=== PATIENT | male | born 1975 | race Caucasian/White ===

== ENCOUNTER 2024-01-29 15:38 | Outpatient (CLI) | payer OTHER, SELFPAY | END 2024-01-29 15:39 | disposition home or self-care (01) | PROVIDERS: Visit Provider Family Medicine | DX: Z00.00 Encounter for general adult medical examination without abnormal findings (principal); Z11.59 Encounter for screening for other viral diseases; F17.220 Nicotine dependence, chewing tobacco, uncomplicated; I73.00 Raynaud's syndrome without gangrene; R13.10 Dysphagia, unspecified; Z82.69 Family history of other diseases of the musculoskeletal system and connective tissue | CPT/HCPCS: 80053; 80061; 83516; 86039; 86235; 86803 ==

== ENCOUNTER 2024-08-10 21:02 | Emergency (ER) | payer OTHER, SELFPAY ==
[2024-08-10 21:10] VITALS: BP 126/85; PULSE 87; RESP 16; TEMP 37; O2SAT 97; BMI 26.8
--- NOTE | 2024-08-10 21:27 | CRLHL7_ITS ---
For Patients: As a result of the Century Cures Act, medical imaging exams and procedure reports are released immediately into your electronic medical record. You may view this report before your referring provider. If you have questions, please contact your health care provider. Indication: Pain superolateral aspect of patella. Technique: Left knee 3 views. Comparison: None. Findings: Bones: Alignment is normal. No fractures or bone lesions. Joint spaces: Unremarkable. Soft tissues: Unremarkable. Impression: No evidence of an acute bony abnormality. The patella is unremarkable. Dictated by Librado Waters MD @ 08/10/2024 9:50:30 PM (Electronically Signed)
--- NOTE | 2024-08-10 21:28 | ED_ITS ---
HPI - General Adult General Chief complaint: Extremity Pain/Injury, Lower Stated complaint: swollen left knee Time Seen by Provider: 08/10/24 21:07 History of Present Illness HPI narrative: This 49-year-old male comes in with pain in his left knee with some mild swelling. He does not report any injury event but states that he is using his knees and legs often at his work. 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 He does not report any instability. He has normal range of motion. His pain seems to be more localized in the superior lateral aspect of the patella. Related Data Previous Rx's ?Medication ?Instructions ?Recorded epinephrine 0.3 mg/0.3 mL 0.3 mg (0.3 mL) IM ONCE #2 ea 01/29/24 injection, auto-injector (EpiPen 2-Tello) nicotine 21 mg/24 hr daily 1 patch transdermal Q24H #28 ea 01/29/24 transdermal patch omeprazole magnesium 10 mg oral 20 mg PO QDAY #30 ea 01/29/24 suspension,delayed release sumatriptan 5 mg/actuation nasal 5 mg intranasal Q2-4H PRN migraine 01/29/24 spray headache #6 ea Allergies Allergy/AdvReac Type Severity Reaction Status Date / Time Fish Containing Products Allergy Severe throat Verified 01/29/24 15:05 swelling Review of Systems Status of ROS: Reports: 10 or more systems reviewed and unremarkable except as noted in History and below Narrative: Constitutional: No fevers, no weight gain or loss. Eyes: No discharge. No vision changes. HENT: No congestion, no sore throat, no ear pain. Cardiovascular: No chest pain, no palpitations. Respiratory: No shortness of breath, no wheezes, no cough. Gastrointestinal: No abdominal pain, no vomiting, no diarrhea. Genitourinary: No dysuria, no hematuria. Musculoskeletal: Normal range of motion. Left knee pain as described above. Skin: No rashes, no pruritis. Neurological: No dizziness, weakness, sensory change, speech change. Endo/Heme/Allergies: No bruising or bleeding. No polydipsia. Pysch: no suicidality, no anxiety, no insomnia. All other systems reviewed and are negative. [facility] Surgical History (Updated 01/29/24 @ 15:19 by Gladys Cali MD) S/P tonsillectomy ?Z90.89 - Acquired absence of other organs (ICD-10) Family History (Updated 01/29/24 @ 15:18 by Gladys Cali MD) Mother Scleroderma Raynaud disease Cardiovascular disease Brother Raynaud disease Diabetes Valvular heart disease Social History (Updated 02/03/24 @ 08:09 by Lisa Larry ~ [facility]) What is your current living situation?: I presently have a place to live Problems where you live: no known problems In the past 12 months, utilities in danger of being shut off: no In the past 12 mos, have been you worried that your food would run out before you had money to buy more?: never true In the past 12 mos, the food you bought just didn't last and you didn't have money to buy more?: never true Smoking Status: Never smoker How often do you have a drink containing alcohol: 2-3 times a week How many standard drinks containing alcohol do you have on a typical day: 1 or 2 AUDIT-C Alcohol total score: 3 Non-prescribed substance use: denies use How often does anyone, including family, friends and others, physically hurt you : never How often does anyone, including family, friends and others, insult or talk down to you: never How often does anyone, including family, friends and others, threaten you with harm: never How often does anyone, including family, friends and others, scream or curse at you: never Exam Narrative: Exam Narrative: Constitutional: Well-developed, well-nourished, no acute distress. HEENT: Normocephalic, atraumatic. Neck: Normal range of motion. Nontender. Supple. Heart: Regular. No murmurs. Normal rate. Intact distal pulses. Lungs: Clear to auscultation. No chest discomfort. No wheezes, rhonchi, or rales. Abdomen: Normal bowel sounds. Nontender. No rebound tenderness. Genitalia: Deferred. Back: No midline tenderness. Normal range of motion. Extremities: Normal range of motion. Mild swelling. Tenderness is located along the lateral aspect of the patella superiorly where the quadricep tendon attaches. Skin: Intact. No rash. Warm. No erythema or pallor. Neurologic: No altered sensation. No weakness. Alert and oriented. Psychiatric: No suicidality. No anxiety or depression. No insomnia. Nursing notes and vitals signs are reviewed. Const: Vital Signs, click to edit/add: Vital Signs - 24 hr 08/10/24 21:10 Temperature 98.6 F Pulse Rate [Pulse Oximeter] 87 Respiratory Rate 16 Blood Pressure [Ri ght Upper Arm] 126/85 Pulse Oximetry 97 Oxygen Delivery Me thod Room Air Course Vital Signs Vital signs: Initial Vital Signs Temperature 98.6 F 08/10/24 21:10 Temperature Source Temporal Artery Scan 08/10/24 21:10 Pulse Rate 87 08/10/24 21:10 Respiratory Rate 16 08/10/24 21:10 Blood Pressure 126/85 08/10/24 21:10 Blood Pressure Mean 98 08/10/24 21:10 Blood Pressure Position Sitting 08/10/24 21:10 Pulse Oximetry 97 08/10/24 21:10 Oxygen Delivery Method Room Air 08/10/24 21:10 Vital Signs Temperature 98.6 F 08/10/24 21:10 Pulse Rate 87 08/10/24 21:10 Respiratory Rate 16 08/10/24 21:10 Blood Pressure 126/85 08/10/24 21:10 Pulse Oximetry 97 08/10/24 21:10 Oxygen Delivery Method Room Air 08/10/24 21:10 Temperature 98.6 F 08/10/24 21:10 Pulse Rate 87 08/10/24 21:10 Respiratory Rate 16 08/10/24 21:10 Blood Pressure 126/85 08/10/24 21:10 Pulse Oximetry 97 08/10/24 21:10 Oxygen Delivery Method Room Air 08/10/24 21:10 Medical Decision Making MDM Narrative Medical decision making narrative: This patient comes in with left knee pain as described above. X-ray images are obtained of the left knee and by my report along with Radiology assessment there are no acute findings. In particular the patella looks normal there is no calcifications suggesting more chronic tendinitis. His symptoms are nevertheless suspicious for a quadriceps tendinitis as he has pain localized where the quadriceps tendon attaches to the patella on the lateral superior aspect of his left knee. This appears to be an overuse injury. The patient does frequently climb ladders and also spends a fair amount of time on his knees related to his work. I advised him to adjust his activities in this way to allow for rest and recovery. The patient is okay to be discharged home and encouraged to follow-up with orthopedic clinic if not improving or worsening. He did receive a prescription for Toradol from the [facility]. Imaging Data XR L Knee: Radiologist's impression: No evidence of an acute bony abnormality. The patella is unremarkable. Discharge Plan Discharge Prescriptions: No Action sumatriptan 5 mg/actuation spray,non-aerosol 5 mg intranasal Q2-4H PRN (Reason: migraine headache) Qty: 6 0RF Rx Instructions: into each nostril once; if headache remains, may repeat total dose once after at least 2 hours epinephrine [EpiPen 2-Tello] 0.3 mg/0.3 mL auto-injector 0.3 mg IM ONCE Qty: 2 1RF Rx Instructions: as a single dose; may repeat once nicotine 21 mg/24 hr patch 24 hour 1 patch transdermal Q24H Qty: 28 12RF omeprazole magnesium 10 mg susp,delayed release for recon 20 mg PO QDAY Qty: 30 12RF Follow Up/Referrals: Provider,Not a Local [Primary Care Provider] -
== END 2024-08-10 22:27 | disposition home or self-care (01) ==
PROVIDERS: Emergency Provider Emergency Medicine Emergency Medical Services
DX: M25.562 Pain in left knee (principal)
CPT/HCPCS: 73562; 99283; 99284

== ENCOUNTER 2024-09-07 02:03 | Emergency (ER) | payer OTHER, SELFPAY ==
[2024-09-07 02:03] VITALS: PULSE 73
[2024-09-07 02:25] VITALS: BP 111/86; PULSE 73; RESP 16; TEMP 36.8; O2SAT 96; BMI 26.8
--- NOTE | 2024-09-07 03:25 | ED_ITS ---
HPI - General Adult General Chief complaint: Extremity Pain/Injury, Upper Stated complaint: Pain left arm Time Seen by Provider: 09/07/24 02:58 Source: patient Mode of arrival: ambulatory Limitations: no limitations History of Present Illness HPI narrative: 49-year-old male presents the emergency department with 10 hours of pain in the left shoulder, focal and with movement. No chest pain, no shortness of breath, no exertional symptoms or dizziness. Has not tried taking any medication to help with his symptoms. He had a hard time falling asleep, therefore decided to come to the emergency department. Has not been evaluated by a medical provider for this condition previously. Works in refrigeration, loss of ladders and overhead work. No specific new trauma or injury. No numbness or tingling, no radiculopathy. No fever. No history of cardiac symptoms. No difficulty breathing. Pain does not radiate. No weakness in the hand. Past medical history benign per his report. No major long-term health problems. Is a smoker. Does have what sounds like an esophageal stricture that he has avoided getting treated. He says that it is difficult to swallow pills because of this. He will sometimes use to medications but admits that he does not know a proper dose of a children's chewable Tylenol and tends to take about 3 tablets. I let him know that this would be a comparable dose for a preschooler. Allergy to fish but not show fish. ROS is notable for the musculoskeletal symptoms in the left shoulder only, otherwise denies times 12 systems. Related Data Previous Rx's ?Medication ?Instructions ?Recorded epinephrine 0.3 mg/0.3 mL 0.3 mg (0.3 mL) IM ONCE #2 ea 01/29/24 injection, auto-injector (EpiPen 2-Tello) nicotine 21 mg/24 hr daily 1 patch transdermal Q24H #28 ea 01/29/24 transdermal patch omeprazole magnesium 10 mg oral 20 mg PO QDAY #30 ea 01/29/24 suspension,delayed release sumatriptan 5 mg/actuation nasal 5 mg intranasal Q2-4H PRN migraine 01/29/24 spray headache #6 ea Allergies Allergy/AdvReac Type Severity Reaction Status Date / Time Fish Containing Products Allergy Severe throat Verified 08/10/24 22:17 swelling PFSH PFS Surgical History S/P tonsillectomy ?Z90.89 - Acquired absence of other organs (ICD-10) Family History Mother Scleroderma Raynaud disease Cardiovascular disease Brother Raynaud disease Diabetes Valvular heart disease Social History What is your current living situation?: I presently have a place to live Problems where you live: no known problems In the past 12 months, utilities in danger of being shut off: no In the past 12 mos, have been you worried that your food would run out before you had money to buy more?: never true In the past 12 mos, the food you bought just didn't last and you didn't have money to buy more?: never true Smoking Status: Never smoker Do you use any of these nicotine containing products: None Second hand tobacco smoke exposure: No How often do you have a drink containing alcohol: 2-3 times a week How many standard drinks containing alcohol do you have on a typical day: 1 or 2 AUDIT-C Alcohol total score: 3 Non-prescribed substance use: denies use How often does anyone, including family, friends and others, physically hurt you : never How often does anyone, including family, friends and others, insult or talk down to you: never How often does anyone, including family, friends and others, threaten you with harm: never How often does anyone, including family, friends and others, scream or curse at you: never service: No Exam Const: Vital Signs, click to edit/add: Vital Signs - 24 hr 09/07/24 02:03 09/07/24 02:25 Temperature 98.2 F Pulse Rate [Left P ulse Oximeter] 73 Pulse Rate [Left R adial] 73 Respiratory Rate 16 Blood Pressure [Ri ght Upper Arm] 111/86 Pulse Oximetry 96 Oxygen Delivery Me thod Room Air Documenting provider has reviewed patient's vital signs: yes Common normals: no apparent distress and alert General appearance: cooperative, comfortable and well kempt HENMT: Common normals: normocephalic Head and scalp: normocephalic Face and sinus: normal facial exam Eye: Common normals: conjunctivae normal General eye: normal appearance of both eyes Conjunctiva: conjunctiva(e) normal Neck & C-Spine: Common normals: full ROM and no lymphadenopathy Resp: Common normals: normal respiratory effort, no use of accessory muscles and clear to auscultation bilaterally Effort & inspection: able to speak in complete sentences Auscultation: clear to auscultation bilaterally Cardio: Common normals: regular rate, regular rhythm, S1 normal heart sound, S2 normal heart sound and no murmurs Rate: regular rate Rhythm: regular rhythm Heart sounds: S1 normal and S2 normal Extremity: Other: Normal range of motion in both shoulders, no point bony tenderness. Positive impingement signs in left rotator cuff, supraspinatus area which does reproduce the pain that he is describing. No weakness in the biceps. Normal strength in the hands. Normal range of motion in the neck. Neuro: Sensorium/orientation: alert Gait (neuro): normal gait Motor exam: strength 5/5 throughout Psych: Appearance: well kempt Activity/motor behavior: appropriate eye contact Insight: fair Judgement: fair Skin: Common normals: no rashes or lesions noted General skin exam: no rashes or lesions noted Course Course ED Course: 49-year-old male with focal pain in the left upper arm/biceps shoulder area. No symptoms to suggest cardiopulmonary disease. Exam very suspicious for chronic rotator cuff strain. Counseled patient on findings. He is in agreement that this is likely the source of his symptoms as well. I offered a cardiac workup including EKG, blood work etc.. I think this would be very low yield for him and he is in agreement. He would also like to decline this today which I think is medically appropriate. Counseled that he is going to have to take medication for this as it is going to flare up on him again. Counseled on his type of work and modifications he may be able to do to reduce his symptoms. Admittedly, it sounds as though this would be difficult for him. I recommend Tylenol 1000 mg every 6 hours and or ibuprofen 600 mg every 6 hours for the pain. Proper dosing discussed. Okay to use gentle sleep aids like melatonin or Benadryl as well. Recommended physical therapy, primary care follow-up if not improving in 8 weeks. Stepwise interventions after that if needed. Alarm symptoms that would warrant ED presentation reviewed. Patient verbalizes understanding and agreement Vital Signs Vital signs: Initial Vital Signs Pulse Rate 73 09/07/24 02:03 Pulse Rhythm Regular 09/07/24 02:03 Vital Signs Pulse Rate 73 09/07/24 02:03 Temperature 98.2 F 09/07/24 02:25 Pulse Rate 73 09/07/24 02:25 Respiratory Rate 16 09/07/24 02:25 Blood Pressure 111/86 09/07/24 02:25 Pulse Oximetry 96 09/07/24 02:25 Oxygen Delivery Method Room Air 09/07/24 02:25 Discharge Plan Discharge Clinical Impression: Dysfunction of left rotator cuff Patient Disposition: Home, Self-Care Condition: Stable Instructions: Rotator Cuff Tendinitis (ED) Additional Instructions: As we discussed, your pain is clearly caused by chronic dysfunction in the left rotator cuff area. There are no signs of heart disease. I do not recommend that we run you up a high bill with an extensive heart workup since your exam is so clearly pointing towards a rotator cuff strain. For most people, this is a chronic rather than an acute type of condition. Meaning your likely to have more flare ups similar to this. Please remember that if the pain is keeping you awake, please max out a proper adult dose of Tylenol and ibuprofen prior to use of an emergency room for this sort of thing. Proper adult dose of Tylenol as a 1000 mg every 6 hours. Proper adult dose of ibuprofen is 600 mg every 6 hours. If you are choosing to use the children's chewable Tylenol, remember that that is a lot of tablets. If the tablets are 100 mg, proper adult dose is at least 7 of them, preferably 10 every 6 hours. This can get expensive. There are smaller tablets available, ibuprofen tends to come in small tablet form that may be easier for you to get down. Taking them with pudding or applesauce may be helpful as well. I recommend that you schedule with a physical therapist. I have given you a handout of information on the condition. Your unlikely to need a referral for a physical therapist. If things are not improving after 8 weeks of physical therapy, I would recommend a follow-up with your primary care provider. Injections and or eventually surgery may be necessary, but often is best to be avoided until things are more problematic. It is okay to use [id number] sleep aids like melatonin 10 mg at bedtime and or Tylenol p.m. which is just Tylenol plus 25-50 mg of Benadryl as needed to help you sleep as well. Prescriptions: No Action sumatriptan 5 mg/actuation spray,non-aerosol 5 mg intranasal Q2-4H PRN (Reason: migraine headache) Qty: 6 0RF Rx Instructions: into each nostril once; if headache remains, may repeat total dose once after at least 2 hours epinephrine [EpiPen 2-Tello] 0.3 mg/0.3 mL auto-injector 0.3 mg IM ONCE Qty: 2 1RF Rx Instructions: as a single dose; may repeat once nicotine 21 mg/24 hr patch 24 hour 1 patch transdermal Q24H Qty: 28 12RF omeprazole magnesium 10 mg susp,delayed release for recon 20 mg PO QDAY Qty: 30 12RF Follow Up/Referrals: Provider,Not a Local [Primary Care Provider] - Stand Alone Forms: MyHealth Info Instructions
== END 2024-09-07 04:08 | disposition home or self-care (01) ==
LOC: ED 03:26
PROVIDERS: Emergency Provider Family Medicine
DX: M75.102 Unspecified rotator cuff tear or rupture of left shoulder, not specified as traumatic (principal)
CPT/HCPCS: 99283

== ENCOUNTER 2024-09-08 13:18 | Outpatient (RCR) | payer OTHER, SELFPAY | END 2025-01-06 23:59 | disposition home or self-care (01) | PROVIDERS: PCP Family Medicine; Visit Provider Family Medicine | DX: M67.912 Unspecified disorder of synovium and tendon, left shoulder (principal); M25.512 Pain in left shoulder; Z51.89 Encounter for other specified aftercare | CPT/HCPCS: 97110; 97161 ==

== ENCOUNTER 2024-09-11 16:36 | Emergency (ER) | payer OTHER, SELFPAY ==
[2024-09-11 16:42] VITALS: BP 120/91; PULSE 75; RESP 22; TEMP 36.5; O2SAT 97; BMI 26.8
[2024-09-11 16:46] VITALS: O2SAT 98
--- NOTE | 2024-09-11 16:46 | ED_ITS ---
HPI - Allergic Reaction General Time Seen by Provider: 16:38 Date Seen: 09/11/24 Chief complaint: Allergic Reaction Stated complaint: Potential allergic reaction Time Seen by Provider: 09/11/24 16:38 Source: patient and family Mode of arrival: ambulatory Limitations: no limitations History of Present Illness HPI narrative: This 49-year-old male is coming in to the ER with concern of having an allergic reaction. 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 He had a protein drink about 130 today, is currently about 5:00 p.m.. At about 445 he developed hives and itching. He felt of slight tickle in his throat, maybe some difficulty swallowing. He baseline reportedly has issues swallowing with pills and cannot swallow pills due to some narrowing in his throat. He is not having any difficulty breathing, his did drive with him here to the ER as the urgent care was closed. He did not take his EpiPen, did not take any Benadryl. He was at a restaurant awhile back and had cross contamination of his meal with fish and had a reaction, his ran across the road to Pharmacy and just got liquid Benadryl. He responded to that without requiring EpiPen. He notes no oral pharyngeal lower lip swelling. His feels like his speech is normal. No GI symptoms, no abdominal pain. MD complaint: allergic reaction and hives Related Data Previous Rx's ?Medication ?Instructions ?Recorded epinephrine 0.3 mg/0.3 mL 0.3 mg (0.3 mL) IM ONCE #2 ea 01/29/24 injection, auto-injector (EpiPen 2-Tello) nicotine 21 mg/24 hr daily 1 patch transdermal Q24H #28 ea 01/29/24 transdermal patch omeprazole magnesium 10 mg oral 20 mg PO QDAY #30 ea 01/29/24 suspension,delayed release sumatriptan 5 mg/actuation nasal 5 mg intranasal Q2-4H PRN migraine 01/29/24 spray headache #6 ea Allergies Allergy/AdvReac Type Severity Reaction Status Date / Time Fish Containing Products Allergy Severe throat Verified 09/11/24 16:50 swelling Review of Systems Status of ROS Reports: 6 or more systems reviewed and unremarkable except as noted in History and below PFSH PFS Surgical History S/P tonsillectomy ?Z90.89 - Acquired absence of other organs (ICD-10) Family History Mother Scleroderma Raynaud disease Cardiovascular disease Brother Raynaud disease Diabetes Valvular heart disease Social History What is your current living situation?: I presently have a place to live Problems where you live: no known problems In the past 12 months, utilities in danger of being shut off: no In past 12 months, lack of transportation kept you from medical appts, meetings, work, or getting things needed for daily living: no In the past 12 mos, have been you worried that your food would run out before you had money to buy more?: never true In the past 12 mos, the food you bought just didn't last and you didn't have money to buy more?: never true Smoking Status: Never smoker Do you use any of these nicotine containing products: None Second hand tobacco smoke exposure: No How often do you have a drink containing alcohol: 2-3 times a week How many standard drinks containing alcohol do you have on a typical day: 1 or 2 How often do you have six or more drinks on one occasion: Never AUDIT-C Alcohol total score: 3 Non-prescribed substance use: denies use How often does anyone, including family, friends and others, physically hurt you : never How often does anyone, including family, friends and others, insult or talk down to you: never How often does anyone, including family, friends and others, threaten you with harm: never How often does anyone, including family, friends and others, scream or curse at you: never service: No Exam Const: Vital Signs, click to edit/add: Vital Signs - 24 hr 09/11/24 16:42 09/11/24 16:46 09/11/24 17:30 Temperature 97.7 F Pulse Rate [Pulse Oximeter] 75 69 Respiratory Rate 22 16 Blood Pressure [Le ft Upper Arm] 120/91 H 102/82 Pulse Oximetry 97 98 95 Oxygen Delivery Me thod Room Air Room Air 09/11/24 18:39 Temperature Pulse Rate [Pulse Oximeter] 66 Respiratory Rate 12 Blood Pressure [Le ft Upper Arm] 101/79 Pulse Oximetry 99 Oxygen Delivery Me thod Room Air With this 49-year-old male is alert, interactive, no apparent distress, ambulatory into the ED of his own accord. His speech is normal, no hoarseness. Sclera clear, conjugate gaze, symmetrical facial function, no rash noted. Lips are normal, oropharynx is normal, normal oral airway, note no swelling. Neck is supple, no adenopathy. Lungs are clear, good air entry, no wheezing or crackles. CV regular rate and rhythm, no murmur, normal S1-S2. Abdomen is soft, nontender. On inspection of the skin he seems to have some mild generalized erythema but no discrete raised your urticarial lesions, do not see any hives on his back. On his upper chest and back can see some mild erythema. Documenting provider has reviewed patient's vital signs: yes Course Course ED Course: Discussed with patient given the sense of the tickle he feels in his throat and skin redness with itching, epinephrine injection certainly could be considered. He personally would like to try to hold off in I do think it is reasonable to try other medicines 1st. He is in a controlled medical environment where we will have him on pulse oximetry and cardiac monitoring. We will place an IV, given 50 mg IV Benadryl, 40 mg IV Solu-Medrol, 20 mg IV Pepcid. Will give him 10 mg oral Zyrtec and see if we can crush this in something so that he could swallow it. He is aware that if he has any sense of worsening, we can and will proceed with epinephrine injection. He agrees if he has worsening to accept the EpiPen. Reevaluation(s) Time of Reevaluation #1: 17:36 Reevaluation #1: Patient is feeling fine. He has no itching, skin symptoms have resolved, no throat symptoms. Will continue monitor, likely discharge to home based on current improvement. Time of Reevaluation #2: 18:45 Reevaluation #2: Patient is feeling fine at this time, will discharge to home. He did not requir e any epinephrine. I think at this time would be reasonable to observe, any return of symptoms will have him take Zyrtec or Claritin and resume Benadryl. He does have an EpiPen at home. Vital Signs Vital signs: Initial Vital Signs Temperature 97.7 F 09/11/24 16:42 Temperature Source Temporal Artery Scan 09/11/24 16:42 Pulse Rate 75 09/11/24 16:42 Pulse Rhythm Regular 09/11/24 16:42 Respiratory Rate 22 09/11/24 16:42 Blood Pressure 120/91 H 09/11/24 16:42 Blood Pressure Mean 100 09/11/24 16:42 Blood Pressure Position Supine 09/11/24 16:42 Pulse Oximetry 97 09/11/24 16:42 Oxygen Delivery Method Room Air 09/11/24 16:42 Vital Signs Temperature 97.7 F 09/11/24 16:42 Pulse Rate 75 09/11/24 16:42 Respiratory Rate 22 09/11/24 16:42 Blood Pressure 120/91 H 09/11/24 16:42 Pulse Oximetry 97 09/11/24 16:42 Oxygen Delivery Method Room Air 09/11/24 16:42 Temperature 97.7 F 09/11/24 16:42 Pulse Rate 66 09/11/24 18:39 Respiratory Rate 12 09/11/24 18:39 Blood Pressure 101/79 09/11/24 18:39 Pulse Oximetry 99 09/11/24 18:39 Oxygen Delivery Method Room Air 09/11/24 18:39 Medications Administered Medications: Discontinued Medications Generic Name Dose Route Start Last Admin Trade Name Freq PRN Reason Stop Dose Admin Cetirizine HCl 10 mg 09/11/24 16:47 09/11/24 17:15 Cetirizine Hcl 10 Mg Tablet PO 09/11/24 16:48 10 mg DAILY ONE Administration Diphenhydramine HCl 50 mg 09/11/24 16:46 09/11/24 17:04 Diphenhydramine 50 Mg/Ml Inj IVP 09/11/24 16:47 50 mg ONCE ONE Administration Famotidine 20 mg 09/11/24 16:46 09/11/24 17:06 Famotidine 10 Mg/Ml Inj IVP 09/11/24 16:47 20 mg ONCE ONE Administration Methylprednisolone Sodium Succinate 40 mg 09/11/24 16:56 09/11/24 17:08 Methylprednisolone Sod Succ 40 Mg/Ml IVP 09/11/24 16:57 40 mg ONCE ONE Administration Discharge Plan Discharge Clinical Impression: Allergic reaction Patient Disposition: Home, Self-Care Condition: Stable Instructions: Food Allergy (ED) Additional Instructions: I would recommend to avoid this protein drink. If any recurrent symptoms such as itching starts up again, resume Benadryl per bottle directions and take daily Claritin or Zyrtec for the next 2-3 days. You were given Zyrtec here tonight. Your dose would be 10 mg of either medicine. If you have any concern for return of severe allergic reaction, it is always advised to use the EpiPen and seek emergent medical evaluation. Activity Level: Activity as Tolerated Prescriptions: No Action sumatriptan 5 mg/actuation spray,non-aerosol 5 mg intranasal Q2-4H PRN (Reason: migraine headache) Qty: 6 0RF Rx Instructions: into each nostril once; if headache remains, may repeat total dose once after at least 2 hours epinephrine [EpiPen 2-Tello] 0.3 mg/0.3 mL auto-injector 0.3 mg IM ONCE Qty: 2 1RF Rx Instructions: as a single dose; may repeat once nicotine 21 mg/24 hr patch 24 hour 1 patch transdermal Q24H Qty: 28 12RF omeprazole magnesium 10 mg susp,delayed release for recon 20 mg PO QDAY Qty: 30 12RF Follow Up/Referrals: Gladys Cali MD [Primary Care Provider] - Stand Alone Forms: [employer] Info Instructions
[2024-09-11] MEDS: diphenhydrAMINE 50 MG/ML inj IVP (17:04)
[2024-09-11] MEDS: FAMOTIDINE 10 MG/ML inj 20 MG IVP (17:06)
[2024-09-11] MEDS: METHYLPREDNISOLONE SOD SUCC 40 MG/ML IVP (17:08)
[2024-09-11] MEDS: CETIRIZINE HCL 10 MG TABLET PO (17:15)
[2024-09-11 17:30] VITALS: BP 102/82; PULSE 69; RESP 16; O2SAT 95
[2024-09-11 18:39] VITALS: BP 101/79; PULSE 66; RESP 12; O2SAT 99
== END 2024-09-11 18:57 | disposition home or self-care (01) ==
PROVIDERS: Emergency Provider Family Medicine; PCP Family Medicine
DX: L50.9 Urticaria, unspecified (principal); T78.49XA Other allergy, initial encounter
CPT/HCPCS: 94761; 96374; 96375; 99284; A9270; J1200; J2919; S0028

== ENCOUNTER 2024-09-14 12:40 | Emergency (ER) | payer OTHER, SELFPAY ==
[2024-09-14] VITALS (16 sets, daily range): BP systolic 113–127; BP diastolic 88–94; PULSE 72–85; RESP 16–18; TEMP 36.5; O2SAT 91–99; BMI 28.0
--- NOTE | 2024-09-14 13:21 | CRLHL7_ITS ---
For Patients: As a result of the Century Cures Act, medical imaging exams and procedure reports are released immediately into your electronic medical record. You may view this report before your referring provider. If you have questions, please contact your health care provider. Indication: Chest pain. Technique: Two view(s) of the chest. Comparison: None available. Findings: Mildly enlarged cardiomediastinal silhouette. Normal pulmonary vasculature. Lungs are well inflated. Streaky bibasilar airspace opacities. No pleural effusion. No pneumothorax. No acute osseous abnormality identified. Impression: 1. Mild cardiomegaly. 2. Streaky bibasilar airspace opacities may represent atelectasis versus pneumonia. Dictated by Keri Flaherty MD @ 09/14/2024 2:08:07 PM (Electronically Signed)
[2024-09-14] MEDS: ASPIRIN 81 MG TAB.CHEW 324 MG PO (13:34)
[2024-09-14 13:56] LABS: Basophils Absolute Auto 0.05 K/uL (0.00-0.30); Basophils Percent Auto 0.5 % (0.0-3.0); Eosinophils Absolute Auto 0.47 K/uL (0.00-0.50); Eosinophils Percent Auto 4.8 % (0.0-7.0); Hematocrit 39.9 % (37.0-53.0); Hemoglobin* 13.7 gm/dL (13.5-17.5); Immature Granulocytes Abs Auto 0.01 K/uL (0.00-0.30); Immature Granulocytes Pct Auto 0.1 %; Lymphocytes Percent Auto 17.3 % (20-44); Mean Corpuscular HGB Conc 34 gm/dL (32-36); Mean Corpuscular Hemoglobin 33 pg (26-34); Mean Corpuscular Volume 95 fL (80-100); Monocytes Percent Auto 6.7 % (0.0-11.0); Neutrophils Absolute Auto 6.85 K/uL (1.7-7.0); Neutrophils Percent Auto 70.6 % (42.0-72.0); Platelet Count* 296 K/uL (140-440); RDW Coefficient of Variation % 13.3 % (11.5-15.5); Red Blood Count 4.21 m/uL (4.30-5.90); White Blood Count* 9.71 K/uL (4.50-11.00)
[2024-09-14 14:01] LABS: Slide Review Reflex No
[2024-09-14 14:13] LABS: Albumin* 4.4 g/dL (3.3-5.0); Chloride* 105 mmol/L (96-114)
[2024-09-14 14:14] LABS: Sodium* 141 mmol/L (135-149)
[2024-09-14 14:16] LABS: Anion Gap 7 mEq/L (7-15); Aspartate Amino Transferase* 19 U/L (12-35); Bilirubin Direct* 0.2 mg/dL (0.0-0.5); Bilirubin Total* 0.5 mg/dL (0.1-1.5); Carbon Dioxide* 29 mmol/L (20-32); Creatinine* 0.9 mg/dL (0.5-1.5); Estimated Glomerular Filt Rate 105 ml/min; Total Protein* 7.9 g/dL (6.0-8.3)
[2024-09-14 14:17] LABS: Alanine Aminotransferase* 23 U/L (4-50); Alkaline Phosphatase* 60 U/L (40-150); Blood Urea Nitrogen* 18 mg/dL (5-24); Calcium* 9.6 mg/dL (8.4-10.6); Glucose* 84 mg/dL (60-115); Lipase* 48 U/L (23-300)
--- NOTE | 2024-09-14 14:18 | ED.CHESTPAIN ---
HPI - Chest Pain General Date Seen: 09/14/24 Chief Complaint: Chest Pain Stated Complaint: Sent from - irregular EKG Time Seen by Provider: 09/14/24 12:42 Source: patient and family Mode of arrival: ambulatory Limitations: no limitations History of Present Illness HPI narrative: Patient is a 49-year-old gentleman who presents here with anterior left-sided chest pain, with some radiation to his neck. This came on approximately 5:00 a.m. this morning and woke him from his sleep, it has remained about the same, since then approximately a 3/10, does not worsen when he moves around or exerts himself, and notes that there is no nausea vomiting diaphoresis associated with this. He has not previous episodes of chest pain, denies any leg swelling associated with this any back pain, and there is no previous history of coronary artery disease. He otherwise feels well, and was recently diagnosed with hives, was not given prednisone although he thinks he may have gotten something here in the emergency room and has been on Benadryl. Cardiac risk factor include male, positive family history of coronary artery disease in the family, no history of diabetes, smoking(but does chew) or hyperlipidemia MD complaint: chest pain Pain location: substernal and left chest Pain radiation: neck Severity: moderate Quality: tightness and heaviness Relieving factors: nothing Exacerbating factors: nothing Context: recent illness Treatment prior to arrival: none Risk Factors Coronary artery disease risk factors: family history of CAD before age 50 Thoracic aortic dissection risk factors: none Related Data Previous Rx's ?Medication ?Instructions ?Recorded epinephrine 0.3 mg/0.3 mL 0.3 mg (0.3 mL) IM ONCE #2 ea 01/29/24 injection, auto-injector (EpiPen 2-Tello) nicotine 21 mg/24 hr daily 1 patch transdermal Q24H #28 ea 01/29/24 transdermal patch Allergies Allergy/AdvReac Type Severity Reaction Status Date / Time Fish Containing Products Allergy Severe throat Verified 09/14/24 11:22 swelling Review of Systems Status of ROS Reports: 10 or more systems reviewed and unremarkable except as noted in History and below [facility] PFS Surgical History S/P tonsillectomy ?Z90.89 - Acquired absence of other organs (ICD-10) Family History Mother Scleroderma Raynaud disease Cardiovascular disease Brother Raynaud disease Diabetes Valvular heart disease Social History What is your current living situation?: I presently have a place to live Problems where you live: no known problems In the past 12 months, utilities in danger of being shut off: no In past 12 months, lack of transportation kept you from medical appts, meetings, work, or getting things needed for daily living: no In the past 12 mos, have been you worried that your food would run out before you had money to buy more?: never true In the past 12 mos, the food you bought just didn't last and you didn't have money to buy more?: never true Smoking Status: Never smoker Do you use any of these nicotine containing products: None Second hand tobacco smoke exposure: No How often do you have a drink containing alcohol: 2-3 times a week How many standard drinks containing alcohol do you have on a typical day: 1 or 2 How often do you have six or more drinks on one occasion: Never AUDIT-C Alcohol total score: 3 Non-prescribed substance use: denies use How often does anyone, including family, friends and others, physically hurt you: never How often does anyone, including family, friends and others, insult or talk down to you: never How often does anyone, including family, friends and others, threaten you with harm: never How often does anyone, including family, friends and others, scream or curse at you: never service: No Exam Narrative Exam Narrative: On examination in room 2 he is in no apparent distress vital signs are normal. GCS is 15/15 pupils equal round reactive to light there is no scleral icterus redness is TMs bilaterally are normal his oropharynx is normal there is no lymphadenopathy anterior posterior chains cranial nerves 3-12 are otherwise normal, chest is good air entry bilateral with no wheezing crackles noted heart sounds no clicks murmurs or gallops his abdomen is soft slightly obese there is no guarding no organomegaly noted. But bowel sounds are normal. Moves all extremities independently well no edema no swelling no pain, negative Homans sign neurologically intact moving his upper lower extremities. Const Vital Signs, click to edit/add: Vital Signs - 24 hr 09/14/24 13:06 09/14/24 13:15 09/14/24 13:21 Temperature 97.7 F Pulse Rate Pulse Rate [Pulse Oximeter] 85 Respiratory Rate 18 Blood Pressure Blood Pressure [Right Upper Arm] 127/93 H Pulse Oximetry 97 95 91 Oxygen Delivery Method Room Air 09/14/24 13:58 09/14/24 14:00 09/14/24 14:01 Temperature Pulse Rate 73 72 73 Pulse Rate [Pulse Oximeter] Respiratory Rate 16 18 16 Blood Pressure 123/94 H Blood Pressure [Right Upper Arm] Pulse Oximetry 96 95 94 Oxygen Delivery Method Room Air Room Air Room Air 09/14/24 14:02 09/14/24 14:30 09/14/24 14:31 Temperature Pulse Rate 73 74 Pulse Rate [Pulse Oximeter] Respiratory Rate 16 Blood Pressure 113/89 Blood Pressure [Right Upper Arm] Pulse Oximetry 95 92 Oxygen Delivery Method Room Air Room Air Room Air 09/14/24 15:00 09/14/24 15:01 Temperature Pulse Rate 74 80 Pulse Rate [Pulse Oximeter] Respiratory Rate Blood Pressure 114/88 Blood Pressure [Right Upper Arm] Pulse Oximetry 98 99 Oxygen Delivery Method Room Air Room Air Documenting provider has reviewed patient's vital signs: yes Course Course ED Course: I discussed with the patient, we will do a chest pain rule out we will give him some aspirin, and he was comfortable this plan reassuring Sarah his initial troponin is negative. Reevaluation(s) Time of Reevaluation #1: 15:10 Reevaluation #1: Reviewed with the patient, he tells me his chest pain is improved is gone from a 3 to a 1. Troponin initially was negative EKG was normal, off follow-up labs showed a negative D-dimer, his chest x-ray was abnormal with the foot could be sclerosis, infiltrates in the bases, I do think given the history of the chest pain then doing a CT scan with IV contrast would be important to rule out aortic along along with any other chest issues. I discussed with them. Patient is not allergic to shellfish, nor is he allergic to iodine. Just fish oil, so I think a CT scan with IV contrast would be okay. Time of Reevaluation #2: 16:00 Reevaluation #2: Patient's troponin is negative x2 EKG shows no acute changes. His chest pain is improved while he is here is chest CT does not show any evidence of pulmonary embolism aortic dissection or any at thing else other than some atelectasis of both his lung bases. Combined this with his family history of scleroderma and esophageal issues I would recommend that he see GI for consult, likely endoscopy. Starting on Prilosec is also suggested, taking 81 mg aspirin a day, light activity returning here if increasing chest pain shortness of breath or exertional chest pain is suggested follow-up with Dr. Cali in 1-2 weeks time. Vital Signs Vital signs: Initial Vital Signs Temperature 97.7 F 09/14/24 13:06 Temperature Source Temporal Artery Scan 09/14/24 13:06 Pulse Rate 85 09/14/24 13:06 Respiratory Rate 18 09/14/24 13:06 Blood Pressure 127/93 H 09/14/24 13:06 Blood Pressure Mean 104 09/14/24 13:06 Pulse Oximetry 97 09/14/24 13:06 Oxygen Delivery Method Room Air 09/14/24 13:06 Vital Signs Temperature 97.7 F 09/14/24 13:06 Pulse Rate 85 09/14/24 13:06 Respiratory Rate 18 09/14/24 13:06 Blood Pressure 127/93 H 09/14/24 13:06 Pulse Oximetry 97 09/14/24 13:06 Oxygen Delivery Method Room Air 09/14/24 13:06 Temperature 97.7 F 09/14/24 13:06 Pulse Rate 80 09/14/24 15:01 Respiratory Rate 16 09/14/24 14:30 Blood Pressure 114/88 09/14/24 15:01 Pulse Oximetry 99 09/14/24 15:01 Oxygen Delivery Method Room Air 09/14/24 15:01 Medications Administered Medications: Generic Name Dose Route Start Last Admin Trade Name Freq PRN Reason Stop Dose Admin Sodium Chloride 1,000 mls @ 1,000 mls/hr 09/14/24 15:15 09/14/24 15:46 0.9 % Sodium Chloride 1000 Ml IV 09/14/24 16:14 1,000 mls/hr .Q1H JOSEY Administration Discontinued Medications Generic Name Dose Route Start Last Admin Trade Name Freq PRN Reason Stop Dose Admin Aspirin 324 mg 09/14/24 13:21 09/14/24 13:34 Aspirin 81 Mg Tab.Chew PO 09/14/24 13:22 324 mg ONCE ONE Administration MDM - Chest Pain MDM Narrative Medical decision making narrative: During the evaluation of this patient I considered multiple differential diagnosis is. The life-threatening differential diagnosis include coronary disease/OR, pulmonary embolism, pneumothorax, pneumonia, and aortic dissection. Other differential diagnosis included but were not limited to pericarditis, myocarditis, chest wall pain, GERD, esophageal rupture, rib fracture contusion, pleurisy, as well as other etiologies. Medical Records Data Attestation: I reviewed the patient's medical records. Lab Data Attestation: I reviewed the patient's lab results. Labs: Lab Results 09/14/24 09/14/24 09/14/24 Range/Units 13:22 13:40 15:20 WBC 9.71 (4.50-11.00) K/uL RBC 4.21 L (4.30-5.90) m/uL Hgb 13.7 (13.5-17.5) gm/dL Hct 39.9 (37.0-53.0) % MCV 95 (80-100) fL MCH 33 (26-34) pg MCHC 34 (32-36) gm/dL RDW Coeff of Chin 13.3 (11.5-15.5) % Plt Count 296 (140-440) K/uL Neut % (Auto) 70.6 (42.0-72.0) % Lymph % (Auto) 17.3 L (20-44) % [place] % (Auto) 6.7 (0.0-11.0) % Eos % (Auto) 4.8 (0.0-7.0) % Baso % (Auto) 0.5 (0.0-3.0) % Neut # (Auto) 6.85 (1.7-7.0) K/uL Lymph # (Auto) 1.70 (0.90-2.90) K/uL [place] # (Auto) 0.70 (0.00-0.90) K/UL Eos # (Auto) 0.47 (0.00-0.50) K/uL Baso # (Auto) 0.05 (0.00-0.30) K/uL Abs Immat Gran (auto) 0.01 (0.00-0.30) K/uL Imm/Tot Granulo (auto) 0.1 % INR 1.02 (0.91-1.10) APTT 31 (23-33) Seconds D-Dimer Quant (PE/DVT) < 0.27 (0.00-0.50) ug/ml Sodium 141 (135-149) mmol/L Potassium 4.0 (3.6-5.1) mmol/L Chloride 105 (96-114) mmol/L Carbon Dioxide 29 (20-32) mmol/L Anion Gap 7 (7-15) mEq/L BUN 18 (5-24) mg/dL Creatinine 0.9 (0.5-1.5) mg/dL Estimated Creat Clear 121.90 Estimated GFR 105 ml/min Glucose 84 (60-115) mg/dL Calcium 9.6 (8.4-10.6) mg/dL Total Bilirubin 0.5 (0.1-1.5) mg/dL Direct Bilirubin 0.2 (0.0-0.5) mg/dL AST 19 (12-35) U/L ALT 23 (4-50) U/L Alkaline Phosphatase 60 (40-150) U/L NT-Pro-B Natriuret Pep 75 pg/mL Total Protein 7.9 (6.0-8.3) g/dL Albumin 4.4 (3.3-5.0) g/dL Lipase 48 (23-300) U/L POC Troponin I 0.00 L 0.00 L (0.01-0.04) ng/ml Imaging Data CT scan - chest: Attestation: I have reviewed the pertinent imaging results. My impression: Bilateral lower lobe atelectasis Radiologist's impression: [place] [address] Diagnostic Imaging Report Patient: Graham Almanzar MR#: [id number] : 1975 Acct:[id number] Loc: ED Service Date: 09/14/[address]: Ordering Physician: Jesus Shell M.D. Date of Service: 09/14/24 Procedure(s): CT angio chest PE protocol Accession Number(s): [id number] cc: Gladys Cali M.D.; Jesus Shell M.D.~ For Patients: As a result of the 21st Century Cures Act, medical imaging exams and procedure reports are released immediately into your electronic medical record. You may view this report before your referring provider. If you have questions, please contact your health care provider. INDICATION: Chest pain TECHNIQUE: CT chest PE was acquired with 95 cc Isovue 370 IV contrast. COMPARISON: Same day chest radiograph FINDINGS: Heart and vasculature: Contrast opacification of the pulmonary arterial tree is adequate. No sign of pulmonary embolism. Borderline cardiomegaly. Thoracic aorta and pulmonary artery are normal in caliber. Lungs and pleura: Bibasilar atelectasis.. No pleural effusions, pleural thickening, or pneumothorax. Lymph nodes/mediastinum: No mediastinal, hilar, or axillary adenopathy. Chest wall: No masses. Upper abdomen: Subcentimeter hypodense lesions in the liver too small to characterize and may represent cysts. Bones: Mild anterior wedging of T7, which may be related to remote compression fracture. IMPRESSION: No pulmonary embolism. Bibasilar atelectasis. Please note that all CT scans at this facility use dose modulation, iterative reconstruction, and/or weight-based dosing when appropriate to reduce radiation dose to as low as reasonably achievable. Dictated by Nora Osei MD @ 09/14/2024 3:45:31 PM (Electronically Signed) ECG Data Attestation: I personally reviewed and interpreted this ECG as follows: ECG interpretation date: 09/14/24 ECG interpretation time: 11:38 Prior ECG tracings: not available for review Interpretation: EKG shows normal sinus rhythm, with a ventricular rate of 72, no acute ST wave changes are noted, QRS is normal at 94 milliseconds QT and QTC are normal Second EKG shows no acute changes. Discharge Plan Discharge Clinical Impression: Chest pain, Atelectasis of both lungs Patient Disposition: Home w/ Parent or Adult Condition: Improved Instructions: Chest Pain (DC) Additional Instructions: Home, rest, suggest follow-up stress test, for your heart, aspirin 81 mg a day, no exertional activity today get the stress test. Prilosec 20 mg a day, this can be purchased at [facility] the cheapest I found. And is [id number]. Follow up with GI, is suggested given your history of swallowing difficulties, history of scleroderma and your mother. Return here if increasing chest pain shortness of breath or exertional chest pain. Follow-up with Dr. Cali in 1-2 weeks for recheck. Activity Level: Light activity Prescriptions: No Action epinephrine [EpiPen 2-Tello] 0.3 mg/0.3 mL auto-injector 0.3 mg IM ONCE Qty: 2 1RF Rx Instructions: as a single dose; may repeat once nicotine 21 mg/24 hr patch 24 hour 1 patch transdermal Q24H Qty: 28 12RF Follow Up/Referrals: Gladys Cali MD [Primary Care Provider] - Stand Alone Forms: [employer] Info Instructions
[2024-09-14 14:35] LABS: NT Pro B Type NatriureticPept* 75 pg/mL
[2024-09-14 14:49] LABS: INR 1.02 (0.91-1.10); Prothrombin Time 14.1 Seconds
[2024-09-14 14:52] LABS: Partial Thromboplastin Time* 31 Seconds (23-33)
[2024-09-14 14:57] LABS: D Dimer Quantitative* < 0.27 ug/ml (0.00-0.50)
--- NOTE | 2024-09-14 15:11 | CRLHL7_ITS ---
For Patients: As a result of the Century Cures Act, medical imaging exams and procedure reports are released immediately into your electronic medical record. You may view this report before your referring provider. If you have questions, please contact your health care provider. INDICATION: Chest pain TECHNIQUE: CT chest PE was acquired with 95 cc Isovue 370 IV contrast. COMPARISON: Same day chest radiograph FINDINGS: Heart and vasculature: Contrast opacification of the pulmonary arterial tree is adequate. No sign of pulmonary embolism. Borderline cardiomegaly. Thoracic aorta and pulmonary artery are normal in caliber. Lungs and pleura: Bibasilar atelectasis.. No pleural effusions, pleural thickening, or pneumothorax. Lymph nodes/mediastinum: No mediastinal, hilar, or axillary adenopathy. Chest wall: No masses. Upper abdomen: Subcentimeter hypodense lesions in the liver too small to characterize and may represent cysts. Bones: Mild anterior wedging of T7, which may be related to remote compression fracture. IMPRESSION: No pulmonary embolism. Bibasilar atelectasis. Please note that all CT scans at this facility use dose modulation, iterative reconstruction, and/or weight-based dosing when appropriate to reduce radiation dose to as low as reasonably achievable. Dictated by Nora Osei MD @ 09/14/2024 3:45:31 PM (Electronically Signed)
[2024-09-14] MEDS: 0.9 % SODIUM CHLORIDE 1000 ml 1,000 ML IV (15:46)
[2024-09-14] MEDS: PANTOPRAZOLE SODIUM 40 MG INJ IVP (16:07)
[2024-09-14 16:20] LABS: PCR FLU A Negative PCR FLU A (Negative); PCR FLU B Negative PCR FLU B (Negative); PCR RSV Negative PCR RSV (Negative); SARS PCR* Negative SARS-CoV-2 (Negative)
== END 2024-09-14 16:35 | disposition home or self-care (01) ==
PROVIDERS: Emergency Provider Family Medicine; PCP Family Medicine
DX: R07.9 Chest pain, unspecified (principal); J98.11 Atelectasis
CPT/HCPCS: 36415; 71046; 71275; 80048; 80076; 83690; 83880; 84484; 85025; 85379; 85610; 85730; 87631; 93005; 94761; 96374; 99284; 99285; A9270; J2470; J7030; Q9967